=== PATIENT | female | born 1985 | race Caucasian/White ===

== ENCOUNTER 2018-02-06 13:35 | Emergency (ER) | payer MEDICAID ==
[~2018-02-06] VITALS: Ht 165.1 cm; Wt 70.3 kg
[2018-02-06 13:54] VITALS: BP 133/49
== END 2018-02-06 14:43 | disposition home or self-care (01) ==
LOC: ER 13:35
DX: S91.342A Puncture wound with foreign body, left foot, initial encounter (principal); W22.8XXA Striking against or struck by other objects, initial encounter; Y93.89 Activity, other specified; Y92.512 Supermarket, store or market as the place of occurrence of the external cause; Y99.8 Other external cause status; Z87.821 Personal history of retained foreign body fully removed